=== PATIENT | male | born 1985 | race Caucasian/White ===

== ENCOUNTER 2024-07-11 00:13 | Emergency (ER) | payer SELFPAY ==
[2024-07-11 00:18] VITALS: BP 148/89; PULSE 71; RESP 18; TEMP 36.6; O2SAT 99
[2024-07-11 06:31] VITALS: BP 150/80; PULSE 66; RESP 14; TEMP 36.1; O2SAT 100
--- NOTE | 2024-07-11 08:41 | ED.DENTAL ---
HPI - Dental/Oral General Chief complaint: Dental/Oral Stated complaint: R sided dental pain Time Seen by Provider: 07/11/24 08:14 right lower tooth pain for 3 weeks, got worse over the last few days, unknown last time was seen by a dentist, patient denies any fever, chills, headache, trouble swallowing or breathing. History of dental repair on that tooth years ago Source: patient Mode of arrival: ambulatory Limitations: no limitations Related Data Allergies Allergy/AdvReac Type Severity Reaction Status Date / Time No Known Allergies Allergy Verified 07/11/24 00:14 Review of Systems Review of Systems: All systems reviewed & are unremarkable except as noted in HPI and below Exam Narrative: General appearance: Well-developed, well-nourished Skin: Normal color Head: Normocephalic, nontraumatic Eyes: Clear conjunctiva ENT: Oropharynx normal, ears normal, right lower dental tenderness, no swelling, no abscess formation Neck: Supple, nontender Neurologic: Alert and oriented ?3, FARM MANAGEMENT ADVISER is normal as tested, no gross motor deficit Course Vital Signs Vital signs: Vital Signs Temperature 36.6 C 07/11/24 00:18 Pulse Rate 71 07/11/24 00:18 Respiratory Rate 18 07/11/24 00:18 Blood Pressure 148/89 H 07/11/24 00:18 Pulse Oximetry 99 07/11/24 00:18 Temperature 36.1 C L 07/11/24 06:31 Pulse Rate 66 07/11/24 06:31 Respiratory Rate 14 07/11/24 06:31 Blood Pressure 150/80 H 07/11/24 06:31 Pulse Oximetry 100 07/11/24 06:31 Critical Care Time Critical Care Time Critical Care Time: No Discharge Plan Discharge Clinical Impression: Toothache Patient Disposition: Home, Self-Care Condition: Stable Instructions: Antibiotic Form, Toothache (ED) Additional Instructions: Return if symptoms are worsening , call your dentist for appointment, take Tylenol as as needed for aches and pain, continue home medications. Patient Language: Lao Prescriptions: New clindamycin HCl [Cleocin HCl] 300 mg capsule 300 mg PO Q6H Qty: 40 0RF ibuprofen 800 mg tablet 800 mg PO TID PRN (Reason: pain) Qty: 20 0RF Follow-up/Referrals: PHYSICIAN,CLOTHING CONSULTANT [Primary Care Provider] - Stand Alone Forms: Work/School Release IP
[2024-07-11] MEDS: IBUPROFEN 400 MG TABLET 800 MG PO (08:47)
== END 2024-07-11 08:52 | disposition home or self-care (01) ==
PROVIDERS: Emergency Provider Emergency Medicine
DX: K08.89 Other specified disorders of teeth and supporting structures (principal)
CPT/HCPCS: 99283; A9270